=== PATIENT | female | born 1980 | race Caucasian/White ===

== ENCOUNTER 2025-06-27 11:25 | Outpatient (CLI) | payer OTHER, SELFPAY | END 2025-06-27 11:26 | disposition home or self-care (01) | LOC: NFLDREF 06-30 14:37 | PROVIDERS: PCP Nurse Practitioner Family; Visit Provider Nurse Practitioner Family | DX: Z13.1 Encounter for screening for diabetes mellitus (principal); Z13.6 Encounter for screening for cardiovascular disorders | CPT/HCPCS: 80061; 82947 ==